=== PATIENT | male | born 1990 | race African-American/Black ===

== ENCOUNTER 2024-03-11 10:02 | Emergency (ER) | payer OTHER, SELFPAY ==
[2024-03-11 10:25] VITALS: BP 133/72; PULSE 74; RESP 16; TEMP 36.9; O2SAT 98; BMI 27.3
[2024-03-11 11:09] LABS: COVID19 -Nasal RAPID Negative (Negative)
--- NOTE | 2024-03-11 12:30 | ED.RECABL ---
HPI - Recheck/Abnormal Lab/Rx General Chief Complaint: Recheck/Abnormal Lab/Rx Stated Complaint: requesting covid test Time Seen by Provider: 03/11/24 10:28 Source: patient Mode of arrival: Ambulatory History of Present Illness HPI narrative: Patient is an asymptomatic 33-year-old otherwise healthy male who is here for evaluation wanting a COVID test. His recently got over COVID. Their son is here in the emergency department as well and had some congestion this morning. Patient stated that he would to go to work and he just wanted to make sure that he did not COVID. Related Data Allergies Allergy/AdvReac Type Severity Reaction Status Date / Time No Known Drug Allergies Allergy Verified 03/11/24 10:23 Review of Systems Review of Systems Narrative: Denies chest pain, sinus congestion, fevers, cough Patient History Social History Smoking Status: Never smoker Smoking Status: Never smoker Substance Use Type: does not use Exam Initial Vital Signs Initial Vital Signs: Vital Signs Temperature 98.4 F 03/11/24 10:25 Pulse Rate 74 03/11/24 10:25 Respiratory Rate 16 03/11/24 10:25 Blood Pressure 133/72 03/11/24 10:25 Pulse Oximetry 98 03/11/24 10:25 Oxygen Delivery Method Room Air 03/11/24 10:25 Const General: cooperative and comfortable Resp Effort & Inspection: normal respiratory effort Auscultation: clear to auscultation bilaterally Cardio Rate: regular rate Rhythm: regular rhythm Course Orders Ordered: ED Orders 03/11/24 10:36 COVID19 -Nasal RAPID Stat Vital Signs Vital signs: Vital Signs - 8 hr 03/11/24 10:25 Temperature 98.4 F Pulse Rate 74 Respiratory Rate 16 Blood Pressure 133/72 Pulse Oximetry 98 Oxygen Delivery Method Room Air MDM - Recheck/Abnormal Lab/Rx Lab Data Labs: Lab Results 03/11/24 Range/Units 10:36 SARS-CoV-2 (PCR) Negative (Negative) MDM Narrative Medical decision making narrative: COVID test negative. Patient is asymptomatic Discharge Plan Departure Patient Disposition: Home Clinical Impression: COVID-19 ruled out by laboratory testing Stand Alone Forms: Patient Portal/API
[2024-03-11 12:39] VITALS: BP 132/73; PULSE 75; RESP 16; TEMP 36.8; O2SAT 99
== END 2024-03-11 12:39 | disposition home or self-care (01) ==
PROVIDERS: Emergency Provider Emergency Medicine
DX: Z20.818 Contact with and (suspected) exposure to other bacterial communicable diseases (principal)
CPT/HCPCS: 87635; 99281; 99282